=== PATIENT | female | born 1945 | race Caucasian/White ===

== ENCOUNTER → 2017-06-11 | Outpatient (CLI) | payer MEDICARE, BC | LOC: MC.RAD 10:20 | DX: Z12.31 Encounter for screening mammogram for malignant neoplasm of breast (principal) ==

== ENCOUNTER → 2018-06-18 | Outpatient (CLI) | payer MEDICARE, BC | LOC: MC.RAD 10:05 | DX: Z12.31 Encounter for screening mammogram for malignant neoplasm of breast (principal) ==

== ENCOUNTER → 2019-06-30 | Outpatient (CLI) | payer MEDICARE, BC | LOC: MC.RAD 10:57 | DX: Z12.31 Encounter for screening mammogram for malignant neoplasm of breast (principal) ==

== ENCOUNTER 2019-08-17 06:14 | Emergency (ER) | payer MEDICARE, BC ==
[~2019-08-17] VITALS: Ht 162.6 cm; Wt 63.6 kg
[2019-08-17 06:25] VITALS: TEMP 97.3
[2019-08-17 06:44] LABS: HEMATOCRIT 36.1 % (37.0-47.0); HEMOGLOBIN 11.9 g/dl (12.5-16.0); MEAN CELL VOLUME 91 fl (80.0-100.0); MEAN CORPUSCULAR HEMOGLOBIN 30 pg (27.0-31.0); MEAN CORPUSCULAR HGB CONC 33 g/dl (33.0-37.0); MEAN PLATELET VOLUME 9.2 fl (7.4-10.4); PLATELET COUNT 226 K/mm3 (130-400); RED BLOOD COUNT 3.97 M/mm3 (4.10-5.30); REDCELL DISTRIBUTION WIDTH-CV 12.9 % (11.5-14.5)
[2019-08-17 06:49] LABS: BILIRUBIN,TOTAL 0.7 mg/dL (0.0-1.0); CALCIUM 10.7 mg/dL (8.4-10.2); POTASSIUM 3.2 mmol/L (3.4-5.0); TOTAL PROTEIN 6.9 gm/dL (6.4-8.2)
[2019-08-17] MEDS ORDERED: ZOFRAN ODT8 MG PO ×3 (07:28→10:11)
[2019-08-17 09:41] LABS: BAND 8 % (0-10); LYMPHOCYTE 4 % (20.0-51.0); NEUTROPHILS 86 % (42.0-75.2); PLATELET ESTIMATE NORMAL (NORMAL)
[2019-08-17 09:47] VITALS: BP 117/58; PULSE 86
== END 2019-08-17 09:47 | disposition home or self-care (01) ==
LOC: COL.ER 06:14
PROVIDERS: Emergency Medicine
DX: E87.6 Hypokalemia (principal); R11.2 Nausea with vomiting, unspecified; I10 Essential (primary) hypertension; E78.5 Hyperlipidemia, unspecified
CPT/HCPCS: J2405; J3010; J7030; J7040

== ENCOUNTER → 2020-07-09 | Outpatient (CLI) | payer MEDICARE, BC ==
[~2020-07-09] MED LIST: ZOFRAN ODT8 MG PO
== END ==
LOC: MC.RAD 10:26
DX: Z12.31 Encounter for screening mammogram for malignant neoplasm of breast (principal)

== ENCOUNTER 2020-09-20 17:16 | Emergency (ER) | payer MEDICARE, BC ==
[~2020-09-20] VITALS: Ht 162.6 cm; Wt 67.7 kg
[2020-09-20 17:27] VITALS: TEMP 98.5
[2020-09-20 18:37] LABS: ALANINE AMINOTRANSFERASE 34 U/L (4-34); ALBUMIN 4.5 gm/dL (3.5-5.0); ALKALINE PHOSPHATASE 73 U/L (50-136); ANION GAP 10 mmol/L (7-16); AST,SGOT 36 U/L (15-37); BILIRUBIN,TOTAL 0.7 mg/dL (0.0-1.0); BLOOD UREA NITROGEN 15 mg/dL (7-17); CALCIUM 11.3 mg/dL (8.4-10.2); CARBON DIOXIDE 29 mmol/L (22-30); CHLORIDE 92 mmol/L (98-107); CREATININE, serum 1.09 (0.52-1.25); GLUCOSE 113 mg/dL (74-106); PH 6 (5-8); POTASSIUM 3.6 mmol/L (3.4-5.0); SODIUM 132 mmol/L (137-145); SQUAMOUS EPITHELIAL None Seen /hpf; TOTAL PROTEIN 7.7 gm/dL (6.4-8.2); URINE APPEARANCE Clear; URINE BACTERIA None Seen /hpf; URINE BILIRUBIN Negative (NEGATIVE); URINE BLOOD Negative (NEGATIVE); URINE COLOR Yellow; URINE GLUCOSE Negative (NEGATIVE); URINE KETONE Negative (NEGATIVE); URINE LEUKOCYTE ESTERASE Negative (NEGATIVE); URINE NITRATE Negative (NEGATIVE); URINE PROTEIN(semi-quant) Negative (NEGATIVE); URINE RBC 0-2 /hpf; URINE UROBILINOGEN Negative (NEGATIVE); URINE WBC 0-2 /hpf
[2020-09-20 18:49] LABS: TROPONIN-I < 0.012 ng/mL (0.000-0.035)
[2020-09-20 18:54] LABS: BASO # 0.1 (0.0-0.2); BASO % 0.8 % (0.0-2.0); EOS % 0.3 % (0-4.0); GRAN # 4.1 (1.4-6.5); GRAN % 69.2 % (42.2-75.2); HEMOGLOBIN 11.2 g/dl (12.5-16.0); LYMPH # 1.2 (1.2-3.4); LYMPH % 19.9 % (20.0-51.0); MEAN CELL VOLUME 92 fl (80.0-100.0); MEAN CORPUSCULAR HEMOGLOBIN 31 pg (27.0-31.0); MEAN CORPUSCULAR HGB CONC 34 g/dl (33.0-37.0); MEAN PLATELET VOLUME 9.7 fl (7.4-10.4); MONO # 0.6 (0.1-0.6); MONO % 9.5 % (1.7-9.3); PLATELET COUNT 214 K/mm3 (130-400); RED BLOOD COUNT 3.62 M/mm3 (4.10-5.30); REDCELL DISTRIBUTION WIDTH-CV 12.3 % (11.5-14.5)
[2020-09-20 18:57] LABS: HEMATOCRIT 33.2 % (37.0-47.0)
[2020-09-20 19:36] VITALS: BP 149/72; PULSE 79
[2020-09-20 19:44] LABS: COLLECTION METHOD CLEAN CATCH
[2020-09-20] MEDS ORDERED: UNIVASC15 MG PO (19:46)
[2020-09-20] MEDS ORDERED: HCTZ 25MG TAB25 MG PO (19:46)
[2020-09-20] MEDS ORDERED: PRAVACHOL10 MG PO (19:47)
[2020-09-20] MEDS ORDERED: RELAFEN 50500 MG/TAB PO (19:47)
[2020-09-20] MEDS ORDERED: CATAPRES 0.1MG0.1 MG PO (19:47)
[2020-09-20] MEDS ORDERED: CATAPRES-TTS 10.1 M1 TD (19:48)
[2020-09-20] MEDS ORDERED: TOPROL XL 50MG50 MG PO (19:48)
[2020-09-20] MEDS ORDERED: ULTRAM 50MG TAB50 MG PO (19:49)
[2020-09-20] MEDS ORDERED: GLUCOSAMINE CHO1 TAB PO (19:49)
== END 2020-09-20 19:45 | disposition home or self-care (01) ==
LOC: COL.ER 17:16
PROVIDERS: Emergency Medicine
DX: I10 Essential (primary) hypertension (principal); Z90.710 Acquired absence of both cervix and uterus; Z88.1 Allergy status to other antibiotic agents

== ENCOUNTER → 2020-12-20 | Outpatient (CLI) | payer MEDICARE, BC ==
[~2020-12-20] MED LIST changes: +CATAPRES 0.1MG0.1 MG PO; +CATAPRES-TTS 10.1 M1 TD; +GLUCOSAMINE CHO1 TAB PO; +HCTZ 25MG TAB25 MG PO; +PRAVACHOL10 MG PO; +RELAFEN 50500 MG/TAB PO; +TOPROL XL 50MG50 MG PO; +ULTRAM 50MG TAB50 MG PO; +UNIVASC15 MG PO
== END ==
LOC: COL.RAD 10:00
DX: E21.3 Hyperparathyroidism, unspecified (principal)
CPT/HCPCS: A9500

== ENCOUNTER → 2021-09-08 | Outpatient (CLI) | payer MEDICARE, BC | LOC: MC.RAD 13:35 | DX: Z12.31 Encounter for screening mammogram for malignant neoplasm of breast (principal) ==

== ENCOUNTER → 2024-05-15 | Outpatient (CLI) | payer MEDICARE, BC ==
[~2024-05-15] MED LIST changes: +MEDROL4 MG PO
== END ==
LOC: MC.RAD 10:18
DX: Z12.31 Encounter for screening mammogram for malignant neoplasm of breast (principal)